=== PATIENT | male | born 2000 | race African-American/Black ===

== ENCOUNTER 2020-12-29 18:05 | Emergency (ER) | payer OTHER, SELFPAY ==
--- NOTE | ~2020-12-29 | XR_ITS ---
EXAMINATION: XR chest 1V portable INDICATION: Cough and fever TECHNIQUE: Portable AP chest at 2003 hours COMPARISON: None available FINDINGS: There are diffuse patchy airspace opacities involving all lung zones. There is no pleural e ffusion or pneumothorax. The cardiomediastinal silhouette is normal. The visualized osseous structure s are unremarkable. IMPRESSION: 1. Diffuse lung disease, consistent with pneumonia and/or pulmonary edema. Reviewed, dictated and finalized at location A.
[2020-12-29 18:35] VITALS: BP 140/68; PULSE 67; RESP 16; TEMP 36.9; O2SAT 100
--- NOTE | 2020-12-29 19:53 | ED.GENADULT ---
HPI - General Adult General Chief complaint: Unspecified <Lele Lamar PA-C - Last Filed: 12/29/20 19:59> Stated complaint: cough/vomiting/chills <Lele Lamar PA-C - Last Filed: 12/29/20 19:59> Time Seen by Provider: 12/29/20 19:38 <Lele Lamar PA-C - Last Filed: 12/29/20 19:59> Source: patient <Lele Lamar PA-C - Last Filed: 12/29/20 19:59> Mode of arrival: ambulatory <Lele Lamar PA-C - Last Filed: 12/29/20 19:59> Limitations: no limitations <Lele Lamar PA-C - Last Filed: 12/29/20 19:59> History of Present Illness HPI narrative: Patient is a 20-year-old male who presents with 3 to 4 days duration of cough nonproductive subjective fever with chills and loss of smell and taste patient also notes an episode of emesis has had some intermittent loose stools. Patient has not taken anything for his symptoms. Patient on arrival is nontoxic-appearing no distress. Patient with concern for COVID-19 <Lele Lamar PA-C - Last Filed: 12/29/20 19:59> Review of Systems Review of Systems: All systems reviewed & are unremarkable except as noted in HPI and below <Lele Lamar PA-C - Last Filed: 12/29/20 19:59> PMFSH Social History Social History: Social History (Updated 12/29/20 @ 19:53 by Lele Lamar PA-C) Smoking status: Current every day smoker <Lele Lamar PA-C - Last Filed: 12/29/20 19:59> Exam Narrative: Exam Narrative: GENERAL: Well-appearing, well-nourished, and in no acute distress. HEAD: Normocephalic, atraumatic. EYES: PERRLA and EOMI. ENT: Nares clear, no rhinorrhea or epistaxis. Mucous membranes moist. CHEST: Clear to auscultation. No respiratory distress. No wheezes rales or rhonchi HEART: Regular rate and rhythm. No murmur heard. Normal peripheral pulses. ABDOMEN: Soft, nontender, nondistended EXTREMITIES: Normal range of motion. No edema. SKIN: Warm, dry, no rash. NEURO: No focal deficits. Alert and oriented x3. Cranial nerves II through XII grossly intact PSYCH: Normal mood and affect. <Lele Lamar PA-C - Last Filed: 12/29/20 19:59> Course Course Emergency Course: Patient in the room in no distress aware of case findings treatment plan diagnosis felt appropriate for outpatient reevaluation agreeing to follow-up as instructed patient had negative chest radiograph tested for COVID-19 provided with primary care follow-up noting that he will follow-up for his results notes that this is the only way to get his results. Patient is afebrile nontoxic-appearing no distress. <Lele Lamar PA-C - Last Filed: 12/29/20 19:59> Vital Signs Vital signs: Vital Signs Temperature 36.9 C 12/29/20 18:35 Pulse Rate 67 12/29/20 18:35 Respiratory Rate 16 12/29/20 18:35 Blood Pressure 140/68 12/29/20 18:35 Pulse Oximetry 100 12/29/20 18:35 Temperature 36.9 C 12/29/20 18:35 Pulse Rate 67 12/29/20 18:35 Respiratory Rate 16 12/29/20 18:35 Blood Pressure 140/68 12/29/20 18:35 Pulse Oximetry 100 12/29/20 18:35 <Lele Lamar PA-C - Last Filed: 12/29/20 19:59> Vital Signs Temperature 36.9 C 12/29/20 18:35 Pulse Rate 67 12/29/20 18:35 Respiratory Rate 16 12/29/20 18:35 Blood Pressure 140/68 12/29/20 18:35 Pulse Oximetry 100 12/29/20 18:35 Temperature 36.9 C 12/29/20 18:35 Pulse Rate 67 12/29/20 18:35 Respiratory Rate 16 12/29/20 18:35 Blood Pressure 140/68 12/29/20 18:35 Pulse Oximetry 100 12/29/20 18:35 <Rehan Reynoso MD - Last Filed: 12/29/20 22:57> Medical Decision Making MDM Narrative Medical decision making narrative: Patient with likely upper respiratory infection tested for COVID-19 felt appropriate for outpatient reevaluation <Lele Lamar PA-C - Last Filed: 12/29/20 19:59> Vital Signs Vital Signs: Vital Signs Temperature 36.9 C 12/29/20 18:35 Pulse Rate 67 12/29/20 18:35 R
[2020-12-30 17:07] LABS: SARS-CoV-2 RNA PCR Positive
== END 2020-12-29 20:13 | disposition home or self-care (01) ==
PROVIDERS: Emergency Medicine Emergency Medical Services; Emergency Provider Emergency Medicine
DX: U07.1 COVID-19 (principal); F17.210 Nicotine dependence, cigarettes, uncomplicated
CPT/HCPCS: 71045; 99283; C9803; U0003; U0005

== ENCOUNTER 2021-03-19 13:07 | Emergency (ER) | payer SELFPAY ==
[2021-03-19 13:29] VITALS: BP 146/52; PULSE 72; RESP 16; TEMP 36.3; O2SAT 98
--- NOTE | 2021-03-19 13:30 | ED.DENTAL ---
HPI - Dental/Oral General Chief complaint: Dental/Oral Stated complaint: toothache Time Seen by Provider: 03/19/21 13:25 Source: patient Mode of arrival: ambulatory Limitations: no limitations History of Present Illness HPI Narrative: Patient is a 21-year-old male who presents complaining of left lower dental pain x1 week. He denies taking [id number] medications for pain. He reports he has not seen a dentist. He denies fever or other complaints. Patient has no significant medical history, does not take medications daily, he does not smoke cigarettes but reports daily use of marijuana. MD Complaint: tooth pain Related Data Allergies Allergy/AdvReac Type Severity Reaction Status Date / Time No Known Allergies Allergy Verified 03/19/21 13:34 Review of Systems Review of Systems: Narrative: CONSTITUTIONAL: Denies fever, chills, or sweats. EYES: Denies visual changes, redness, or discharge. ENT: Denies rhinorrhea, congestion, sore throat, or otalgia. Left lower dental pain CARDIOVASCULAR: Denies chest pain, palpitations, or edema. RESPIRATORY: Denies cough or dyspnea. GASTROINTESTINAL: Denies abdominal pain, nausea, vomiting, or diarrhea. GENITOURINARY: Denies dysuria or hematuria. SKIN: Denies rash or itching. MUSCULOSKELETAL: Denies back pain, joint pain, or myalgia. NEUROLOGIC: Denies headache, numbness, dizziness, or weakness. PSYCHIATRIC: Denies anxiety or depression. PMFSH Past Medical History Medical History (Updated 03/19/21 @ 13:37 by SHEREE Crowe) No significant past medical history Surgical History Surgical History (Updated 03/19/21 @ 13:32 by SHEREE Crowe) No significant past surgical history Social History Social History (Updated 03/19/21 @ 13:34 by SHEREE Crowe) Smoking status: Never smoker Alcohol intake: never Substance use: current Substance use type: marijuana Other substance usage details: daily use Living arrangements: with family Gender identity (if verbalized by the patient): Male Comments At the time of signature, I have reviewed and agree with nursing past medical, surgical, social, and family history unless otherwise noted. Please see nursing chart for further information. There is no relevant family history pertinent to the presenting complaint. Exam Narrative: Exam Narrative: GENERAL: Well-appearing, well-nourished, and in no acute distress. HEAD: Normocephalic, atraumatic. EYES: EOMI. No redness or drainage. Conjunctiva are normal. ENT: Mucous membranes pink and moist. Periapical abscess to tooth #37 CHEST: No respiratory distress. HEART: Regular rate and rhythm. EXTREMITIES: Normal range of motion. SKIN: Warm, dry, no rash. NEURO: No focal deficits. Alert and oriented x3. Gait steady. PSYCH: Normal affect. No signs of depression or anxiety. Course Vital Signs Vital signs: Vital Signs Temperature 36.3 C L 03/19/21 13:29 Pulse Rate 72 03/19/21 13:29 Respiratory Rate 16 03/19/21 13:29 Blood Pressure 146/52 H 03/19/21 13:29 Pulse Oximetry 98 03/19/21 13:29 Temperature 36.3 C L 03/19/21 13:29 Pulse Rate 72 03/19/21 13:29 Respiratory Rate 16 03/19/21 13:29 Blood Pressure 146/52 H 03/19/21 13:29 Pulse Oximetry 98 03/19/21 13:29 MDM - Dental/Oral MDM Narrative Medical decision making narrative: Patient to be treated for dental infection at this time. Discussed starting antibiotics, salt water rinses and following up with dentist. Patient agrees with plan of care. Patient is stable for discharge to home with outpatient follow-up as discussed. Differential Diagnosis Differential diagnosis: Likely dental caries, toothache, dental abscess and fracture of tooth Critical Care Time Critical Care Time Critical Care Time: No Discharge Plan Discharge Clinical Impression: Toothache, Dental abscess Patient Disposition: Home, Self-Care Condition: Stable Instructions: Antibiotic For
[2021-03-19 14:23] VITALS: BP 133/82; PULSE 84; RESP 17; O2SAT 100
== END 2021-03-19 14:26 | disposition home or self-care (01) ==
LOC: ANHED 13:50
PROVIDERS: Emergency Provider Nurse Practitioner
DX: K04.7 Periapical abscess without sinus (principal)
CPT/HCPCS: 99283